=== PATIENT | female | born 1995 | race Caucasian/White ===

== ENCOUNTER 2020-12-30 20:03 | Inpatient (IN) | payer OTHER ==
[2020-12-30 20:51] LABS: HCT 37.6 % (37.0-47.0); MCH 27.5 pg (25.0-31.0); MCHC 31.9 g/dL (32.0-36.0); MPV 9.8 fL (6.0-9.5); RBC 4.37 M/uL (4.20-5.40); RDW 14.6 % (11.5-14.0); WBC 14.3 K/uL (4.0-10.5)
[2020-12-30 21:07] LABS: AMPHETAMINES NEGATIVE (NEGATIVE); BARBITURATES NEGATIVE (NEGATIVE); BILIRUBIN NEGATIVE (NEGATIVE); BLOOD TRACE-INTACT Ery/uL (NEGATIVE); CLARITY CLEAR (CLEAR); COLOR YELLOW (YELLOW); ECSTASY (MDMA) NEGATIVE (NEGATIVE); GLUCOSE (U) NORMAL (NORMAL); LEUKOCYTES NEGATIVE Leu/uL (NEGATIVE); MARIJUANA (THC) NEGATIVE (NEGATIVE); METHADONE NEGATIVE (NEGATIVE); NITRITE NEGATIVE (NEGATIVE); OPIATES NEGATIVE (NEGATIVE); OXYCODONE NEGATIVE (NEGATIVE); PROTEIN NEGATIVE (NEGATIVE); SPECIFIC GRAVITY 1.025 (1.001-1.030); UROBILINOGEN 0.2 mg/dL (0.2-1.0)
[2020-12-30 21:14] LABS: BACTERIA 2+
[2021-01-02 05:18] LABS: HCT 30.3 % (37.0-47.0); HGB 9.6 g/dl (12.5-16.0); MCH 27.4 pg (25.0-31.0); MCHC 31.7 g/dL (32.0-36.0); MCV 86.3 fL (78.0-100.0); MPV 9.9 fL (6.0-9.5); RBC 3.51 M/uL (4.20-5.40); RDW 14.8 % (11.5-14.0); WBC 19.6 K/uL (4.0-10.5)
== END 2021-01-02 17:50 | disposition home or self-care (01) | DRG 806 ==
LOC: FOD 20:03 → FOB 20:07 → FOD 20:12 → FOB 20:13
PROVIDERS: ADMIT Obstetrics & Gynecology
PROC: 10E0XZZ Delivery of Products of Conception, External Approach (ICD-10-PCS; principal; 2021-01-01)
PROC: 0KQM0ZZ Repair Perineum Muscle, Open Approach (ICD-10-PCS; 2021-01-01)
DX: O99.02 Anemia complicating childbirth (principal); O99.323 Drug use complicating pregnancy, third trimester; Z37.0 Single live birth; D62 Acute posthemorrhagic anemia; O99.333 Smoking (tobacco) complicating pregnancy, third trimester; F17.200 Nicotine dependence, unspecified, uncomplicated; F19.980 Other psychoactive substance use, unspecified with psychoactive substance-induced anxiety disorder; Z3A.39 39 weeks gestation of pregnancy; O70.1 Second degree perineal laceration during delivery; Z20.822 Contact with and (suspected) exposure to COVID-19
CPT/HCPCS: 36415; 80305; 81001; J0595; J2405; J2795; J7120; U0002